=== PATIENT | male | born 1985 | race Caucasian/White ===

== ENCOUNTER 2018-12-17 14:49 | Emergency (ER) | payer OTHER, BC ==
[2018-12-17 15:14] VITALS: BP 132/82; PULSE 95; TEMP 98.5; BMI 25.8
[2018-12-17] MEDS ORDERED: IBUPROFEN 400 MG TABLET (FP) PO ONE (15:15)
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
[2018-12-17] MEDS ORDERED: IBUPROFEN 600 MG TABLET (FP) PO ONE (15:19)
== END 2018-12-17 15:44 | disposition home or self-care (01) ==
LOC: FER 14:49
CPT/HCPCS: 99281-25

== ENCOUNTER 2019-01-05 17:34 | Emergency (ER) | payer OTHER, BC ==
[2019-01-05] MEDS ORDERED: IBUPROFEN 400 MG TABLET (FP) PO ONE ×2 (17:49→17:55)
[2019-01-05 17:54] VITALS: BP 105/67; PULSE 75; TEMP 98.3; BMI 27.4
--- NOTE | 2019-01-05 18:40 | PDOC ---
Documentation entered by Shilpa Pemberton SCRIBE, acting as scribe for Kunal Amin MD. Kunal Amin MD: This documentation has been prepared by the scribeNilay Lincy, SCRIBE, under my direction and personally reviewed by me in its entirety. I confirm that the documentation accurately reflects all work, treatment, procedures, and medical decision making performed by me. History of Present Illness - General Chief Complaint: Pain Stated Complaint: FELL AT WORK 2 DAYS AGO PAIN RIGHT RIBS History Source: Patient Exam Limitations: No Limitations - History of Present Illness Initial Comments: 01/05/19 18:03 The patient is a 33-year-old male with no reported past medical history presents to the emergency department s/p a fall with pain to the right chest, side and upper back. The patient reports he works for the [employer] and on Wednesday he suffered a fall while working. The patient reports he fell straight forward onto a smooth surface pavement, sustaining an injury to the right chest, ribs. The patient reports the pain was minimal on wednesday and he was able to finish working. Patient reports working yesterday (01/04/2019), with increasing pain thats aggravated with lifting. The patient reports he woke up today with severe pain to the affected region, that has increased in severity. The pain is aggravated with laying on the right side, laying on his back, breathing (normally) and with exertion such as lifting or walking. The patient reports taking Motrin for the pain at 11:00 am today, with mild relief. Denies abdominal pain, nausea, vomiting, shoulder pain, neck pain. Denies numbness or tingling. Denies LOC or head injury from the fall. Allergies: NKDA Social history: 30 cigarettes/day smoker, No alcohol or recreational drug use reported. Past History - Past Medical History Allergies/Adverse Reactions: Allergies Allergy/AdvReac Type Severity Reaction Status Date / Time No Known Allergies Allergy Verified 01/05/19 17:35 Home Medications: Ambulatory Orders NK [No Known Home Medication] 01/05/19 COPD: No - Suicide/Smoking/Psychosocial Hx Smoking History: Current every day smoker Have you smoked in the past 12 months: Yes Number of Cigarettes Smoked Daily: 30 'Breaking Loose' booklet given: 12/17/18 Hx Alcohol Use: No Drug/Substance Use Hx: No Substance Use Type: None Review of Systems - Review of Systems Able to Perform ROS?: Yes Comments:: 01/05/19 18:06 Constitutional - Pt denies Fever, Chills, weakness, HEENT: denies vision changes, sore throat Respiratory: Denies cough, sob, hemoptysis Cardiac: +chest pain (R) denies palpitations, lightheadedness, leg swelling Abd/GI: denies abd pain, nausea, vomiting, blood per rectum, melena, diarrhea Musculoskeletal - +right chest, side and upper back pain. Denies mid-left sided back pain or joint swelling skin - denies bruising, erythema, rash neurological: denies headache, numbness, focal weakness, tingling, ataxia, weakness hematologic: denies anemia, easy bruising, easy bleeding. *Physical Exam - Physical Exam Comments: 01/05/19 17:49 GENERAL: The patient is awake, alert, and fully oriented, Nontoxic - in no acute distress. HEAD: Normocephalic, atraumatic. NECK: Normal range of motion, supple BACK: No focal bony tenderness or ecchymosis, mild diffuse ttp to L upper lateral ribs LUNGS: Breath sounds equal, clear to auscultation bilaterally. No wheezes, no rhonchi, no rales. HEART: Regular rate and rhythm, normal S1 and S2 without murmur, rub or gallop. ABDOMEN: Soft, nontender, No guarding, no rebound. . No CVA tenderness EXTREMITIES: Normal range of motion, no edema. No focal ttp on shoulderss/b/l ue. normal movement of LE without limitations NEUROLOGICAL: No facial assymetry, Normal speech, moving all 4 extermities spontaneously and symmetrically PSYCH: Normal mood, normal affect. SKIN: Warm, Dry, normal turgor, no signs of bruising/echymosis, erythema or rashes to area of discomfort ED Treatment Course - RADIOLOGY Radiology Studies Ordered: Category Date Time Status CHEST PA & LAT [RAD] Stat Radiology 01/05/19 17:49 Ordered Medical Decision Making - Medical Decision Making 01/05/19 17:52 strain vs fx - will give NSAIDS will obtian xray to r/o fx, if no fx, supportive care at home 01/05/19 18:38 no fx noted on xray mathew ldc the pt with pmd fu and supportive care suspect rib strain will have pt take it easy/rest for a few days I discussed the physical exam findings, ancillary test results and final diagnoses with the patient. I answered all of the patient's questions. The patient was satisfied with the care received and felt comfortable with the discharge plan and treatment plan. The patient will call their primary care physician within 24 hours to arrange follow-up and will return to the Emergency Department with any new, persistent or worsening symptoms. *DC/Admit/Observation/Transfer Diagnosis at time of Disposition: Back strain Qualifiers: Encounter type: initial encounter Qualified Code(s): S39.012A - Strain of muscle, fascia and tendon of lower back, initial encounter - Discharge Dispostion Disposition: HOME Condition at time of disposition: Stable Decision to Admit order: No - Referrals [place] [facility] [place] [facility] [place] Group] - Patient Instructions Printed Discharge Instructions: DI for Back Strain or Sprain Additional Instructions: Return to the emergency department immediately with ANY new, persistent or worsening symptoms. Take Tylenol or ibuprofen every 6 hours for the next 3 days. You MUST call and follow up with your doctor within 4-5 days for further evaluation of your symptoms. Results were discussed with you. Please make sure your doctor reviews the results of your emergency evaluation. If you had any xrays during your visit, it was read preliminarily by myself, a Radiologist will review it and if there are any additional findings we will call you. - Post Discharge Activity Forms/Work/School Notes: Back to Work
== END 2019-01-05 18:47 | disposition home or self-care (01) ==
LOC: FER 17:34
DX: S39.012A Strain of muscle, fascia and tendon of lower back, initial encounter (principal); W18.39XA Other fall on same level, initial encounter; Y93.89 Activity, other specified; Y92.89 Other specified places as the place of occurrence of the external cause; Y99.0 Civilian activity done for income or pay; F17.210 Nicotine dependence, cigarettes, uncomplicated
CPT/HCPCS: 71046-TC-FY; 99282-25

== ENCOUNTER 2019-06-12 10:52 | Emergency (ER) | payer OTHER ==
[2019-06-12 10:58] VITALS: BP 101/66; PULSE 94; TEMP 98.4; BMI 28.3
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
== END 2019-06-12 12:48 | disposition home or self-care (01) ==
LOC: JERFT 10:52
PROC: 2W3KX1Z Immobilization of Left Finger using Splint (ICD-10-PCS; principal; 2019-06-12)
DX: S69.82XA Other specified injuries of left wrist, hand and finger(s), initial encounter (principal); W31.83XA Contact with special construction vehicle in stationary use, initial encounter; Y93.H9 Activity, other involving exterior property and land maintenance, building and construction; Y92.488 Other paved roadways as the place of occurrence of the external cause; Y99.0 Civilian activity done for income or pay
CPT/HCPCS: 73140-TC-LT-FY; 99281-25

== ENCOUNTER 2019-08-25 13:32 | Emergency (ER) | payer BC, OTHER ==
[2019-08-25] MEDS ORDERED: IBUPROFEN 600 MG TABLET (FP) PO ONE ×2 (13:40→14:27)
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
[2019-08-25] MEDS ORDERED: LIDOCAINE 5% TOPICAL PATCH TP ONE (13:41)
[2019-08-25 13:57] VITALS: BP 112/77; PULSE 73; TEMP 98.4; BMI 25.0
[2019-08-25] MEDS ORDERED: LIDOCAINE 5% TOPICAL PATCH ONE (14:28)
[2019-08-25] MEDS ORDERED: LIDOCAINE PATCH REMOVAL MC SCH (22:00)
== END 2019-08-25 15:04 | disposition home or self-care (01) ==
LOC: FER 13:32
DX: S20.212A Contusion of left front wall of thorax, initial encounter (principal); V63.6XXA Passenger in heavy transport vehicle injured in collision with car, pick-up truck or van in traffic accident, initial encounter; Y93.89 Activity, other specified; Y92.410 Unspecified street and highway as the place of occurrence of the external cause
CPT/HCPCS: 71101-TC-LT-FY; 99281-25

== ENCOUNTER 2020-10-14 08:23 | Emergency (ER) | payer OTHER, BC ==
[2020-10-14 08:29] VITALS: BP 129/72; PULSE 74; TEMP 98.2; BMI 24.2
[2020-10-14] MEDS ORDERED: IBUPROFEN 600 MG TABLET (FP) PO ONE ×2 (08:32→09:16)
== END 2020-10-14 09:27 | disposition home or self-care (01) ==
LOC: FER 08:23
DX: S39.012A Strain of muscle, fascia and tendon of lower back, initial encounter (principal); M54.42 Lumbago with sciatica, left side; W19.XXXA Unspecified fall, initial encounter
CPT/HCPCS: 72100-TC-FY; 73523-TC-FY; 99284-25

== ENCOUNTER 2022-04-16 09:00 | Emergency (ER) | payer OTHER, BC ==
[2022-04-16 09:19] VITALS: BP 107/68; PULSE 70; RESP 16; TEMP 98.2; BMI 24.2
[2022-04-16] MEDS ORDERED: ACETAMINOPHEN 500 MG TABLET (FP) PO ONE (09:56)
[2022-04-16] MEDS ORDERED: ACETAMINOPHEN 500 MG TABLET (FP) ONE (10:07)
== END 2022-04-16 12:22 | disposition home or self-care (01) ==
LOC: JERFT 09:00
DX: M25.572 Pain in left ankle and joints of left foot (principal); M79.672 Pain in left foot
CPT/HCPCS: 73610-TC-LT-FY; 73630-TC-LT; 99283-25

== ENCOUNTER 2023-03-10 11:17 | Emergency (ER) | payer BC, OTHER ==
[2023-03-10] MEDS ORDERED: DIPHTH,PERTUSS(ACELL),TET 0.5 ML DISP.SYRIN IM ONE ×2 (11:31→11:42)
[2023-03-10 11:36] VITALS: BP 123/80; PULSE 97; RESP 18; TEMP 98.1; BMI 25.8
[2023-03-10] MEDS ORDERED: IBUPROFEN 600 MG TABLET (FP) PO ONE ×2 (11:37→11:42)
== END 2023-03-10 12:21 | disposition home or self-care (01) ==
LOC: FER 11:17
PROC: 3E0234Z Introduction of Serum, Toxoid and Vaccine into Muscle, Percutaneous Approach (ICD-10-PCS; principal; 2023-03-10)
DX: M79.662 Pain in left lower leg (principal); S81.812A Laceration without foreign body, left lower leg, initial encounter; W09.8XXA Fall on or from other playground equipment, initial encounter; W22.8XXA Striking against or struck by other objects, initial encounter; Y92.019 Unspecified place in single-family (private) house as the place of occurrence of the external cause
CPT/HCPCS: 73590-TC-LT-FY; 90715; 99283-25

== ENCOUNTER 2024-08-17 10:29 | Emergency (ER) | payer OTHER, BC ==
[2024-08-17 10:42] VITALS: BP 120/76; PULSE 75; RESP 18; TEMP 98.2; BMI 25.8
[2024-08-17] MEDS: IBUPROFEN 400 MG TABLET (FP) PO ONE (11:17)
== END 2024-08-17 11:55 | disposition home or self-care (01) ==
LOC: FER 10:29
DX: M79.672 Pain in left foot (principal); Y30.XXXA Falling, jumping or pushed from a high place, undetermined intent, initial encounter
CPT/HCPCS: 73610-TC-LT-FY; 73630-TC-LT; 99283-25

== ENCOUNTER 2024-09-01 08:36 | Emergency (ER) | payer OTHER, BC ==
[2024-09-01 08:43] VITALS: BP 122/62; PULSE 81; RESP 18; TEMP 97.2; BMI 25.8
[2024-09-01] MEDS ORDERED: IBUPROFEN 400 MG TABLET (FP) PO ONE (10:32)
[2024-09-01] MEDS ORDERED: ACETAMINOPHEN 500 MG TABLET (FP) ONE (10:33)
[2024-09-01] MEDS: ACETAMINOPHEN 500 MG TABLET (FP) PO ONE (10:35)
[2024-09-01] MEDS: IBUPROFEN 400 MG TABLET (FP) PO ONE (10:35)
== END 2024-09-01 11:09 | disposition home or self-care (01) ==
LOC: JERFT 08:36
DX: S46.911A Strain of unspecified muscle, fascia and tendon at shoulder and upper arm level, right arm, initial encounter (principal); W01.0XXA Fall on same level from slipping, tripping and stumbling without subsequent striking against object, initial encounter; Y99.0 Civilian activity done for income or pay
CPT/HCPCS: 73030-TC-RT-FY; 73060-TC-RT-FY; 99283-25